=== PATIENT | female | born 1970 | race Caucasian/White ===

== ENCOUNTER → 2019-07-22 | Outpatient (CLI) | payer SELFPAY ==
[2019-07-22 08:12] VITALS: BP 118/78; PULSE 67; RESP 18; TEMP 98; BMI 23.2
--- NOTE | 2019-07-22 09:37 | P.GSHP ---
History of Present Illness H&P Date: 07/22/19 Chief Complaint: nodule in the right breast The patient is a 49 year old female visiting from [place] with a complaint of a nodule in her right breast which has been present for approximately one year. She had a mammogram performed yesterday which did not show anything of concern in either breast by report. She additionally had a bilateral ultrasound performed on 07/15/2019 which revealed multiple bilateral basilar known pseudocyst. The largest was in the right. A tubular cyst was located in the 11 o'clock position measured 2.8 cm in greatest dimension. There was an irregular mass measuring 2 cm seen in the left breast at 9:00 5 cm from the nipple. There was a horizontal mass measuring 8 mm seen in the left breast at 10:00. In the right breast there is no evidence of any solid mass or other abnormality. The impression was an irregular mass in the left breast at 9:00 considered suspicious and ultrasound-guided biopsy was recommended. The oval mass in the left breast at 10:00 was felt to be probably benign and follow-up in 6 months was recommended. The patient [place] [id number]. This was reviewed with Dr. Khan. She did not see any lesions suspicious for malignancy on the mammogram. The patient did not give any history of any trauma or infection in her breast. Family history: 1. Mother: Thyroid cancer 2. Father: Bladder cancer 3. Paternal uncle: Sarcoma 4. Maternal uncle: Biliary adenocarcinoma 5. 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 Social history: Smoke: Negative Alcohol: Negative Drugs: Negative - Constitutional Comment: Patient has sweats or before her periods - EENT Eyes: denies blurred vision, denies pain Ears: deny: decreased hearing, tinnitus Ears, nose, mouth and throat: Denies headache, Denies sore throat - Breasts Breasts: bilateral: as per HPI - Cardiovascular Cardiovascular: Denies chest pain, Denies shortness of breath - Respiratory Respiratory: Denies cough, Denies 7 - Gastrointestinal Gastrointestinal: Denies abdominal pain, Denies diarrhea, Denies nausea, Denies vomiting - Genitourinary (Female) Genitourinary: Denies dysuria, Denies hematuria - Menstruation Comment: adrienne-menopausal - Musculoskeletal Comment: right knee pain - Integumentary Integumentary: Denies pruritus, Denies rash - Neurological Comment: headaches Neurological: Denies numbness, Denies weakness - Psychiatric Psychiatric: Denies anxiety, Denies depression - Endocrine Comment: hyperthyroid - Hematologic/Lymphatic Comment: none - Allergic/Immunologic Allergic/Immunologic: Reports seasonal allergies Past Medical History History of Any Multi-Drug Resistant Organisms: None Reported Smoking Status: Never smoker Medications and Allergies Home Medications Medication Instructions Recorded Confirmed Type B Complex & C No.20/Folic Acid 1 mg PO DAILY 07/22/19 07/22/19 History [Nephrocaps Softgel] Ibuprofen [Motrin] 600 mg PO DAILY PRN 07/22/19 07/22/19 History Methimazole 2.5 mg PO DAILY 07/22/19 07/22/19 History Multivitamin [Multivitamins Adult 1 each PO DAILY 07/22/19 07/22/19 History Gummies] Allergies Allergy/AdvReac Type Severity Reaction Status Date / Time sulfamethoxazole AdvReac Vomiting Unverified 07/22/19 08:12 [From Bactrim] trimethoprim [From Bactrim] AdvReac Vomiting Unverified 07/22/19 08:12 Surgical - Exam Vital Signs Temp Pulse Resp BP Pulse Ox 98.0 F 67 18 118/78 100 07/22/19 08:05 07/22/19 08:05 07/22/19 08:05 07/22/19 08:05 07/22/19 08:05 BMI 23.2 - General well developed, well nourished, no distress - Eyes normal ocular movement - ENT no hearing loss, no congestion - Neck no masses, trachea midline - Respiratory normal expansion, normal respiratory effort, clear to auscultation - Cardiovascular Rhythm: regular Heart Sounds: normal: S1, S2 - Abdomen Abdomen: soft, non tender, no guarding, no rigid, no rebound - Integumentary normal turgor - Neurologic no disoriented, no combative - Musculoskeletal normal gait, normal posture - Psychiatric oriented to time, oriented to person, oriented to place, speech is normal, memory intact Breast examination: Right breast: Multi-positional exam reveals a nodule in the periareolar region at approximately 12:00 this is approximately 1 cm in size it is smooth Fibrocystic changes Right axilla: No adenopathy of concern Left breast: Multi-positional exam fibrocystic changes no discrete dominant masses or nodules of concern Left axilla: No adenopathy of concern Results Patient's mammograms from yesterday before brought from [facility] with Dr. Khan, no discrete lesions were identified in either the right or left breast warranting biopsy on the mammograms Patient's ultrasound from 07-15-19 revealed an area in the left breast at 9:00 for which biopsy was recommended, however on the radiographs sent to us know ultrasound image from 9:00 was available we are therefore recommending repeat bilateral breast ultrasounds Assessment and Plan Assessment: Impression: 1. Palpable mass right breast 2. Radiographic abnormality left breast with questionable change on the right breast mammogram for which ultrasound with attention on 11:[address] Lyon 3. Hypothyroidism 4. Family history of breast cancer 5. Family history of cancer 6. Perimenopausal I have given the patient the option of an attempted aspiration of possible cysts in the palpable lesion in the right breast she wishes to proceed with this Plan: 1. Attempted cyst aspiration right breast 2. Bilateral breast ultrasound with attention to 11:00 right breast and 9:00 left breast 3. If unable to aspirate cyst at the 12 o'clock position of the palpable lesion in the right breast recommend excision in the OR. Cc: Dr. Pal
--- NOTE | 2019-07-22 09:40 | P.PCN ---
Date of Procedure: 07/22/19 Preoperative Diagnosis: Mass right breast at 12:00 Postoperative Diagnosis: same Procedure(s) Performed: Fine-needle aspiration Surgeon: Marj Warner Condition: stable Disposition: same day Indications for Procedure: Palpable mass right breast near 12:00 periaerolar area Description of Procedure: The area of concern in the right breast was prepped using alcohol. A 22-gauge needle on a 10 mL syringe was inserted into the area of concern. The area appeared to be firm in nature and no fluid was obtained with suction on the syringe. An attempt at passing the needle several times to the area was made to obtain cells for cytology. The specimen did not have many cells. The patient tolerated the procedure in stable condition.
== END | disposition home or self-care (01) ==
LOC: WWCWWP 07:39
PROVIDERS: ATTEND Surgery
DX: Z53.9 Procedure and treatment not carried out, unspecified reason (principal)

== ENCOUNTER → 2019-07-22 | Day surgery (SDC) | payer SELFPAY ==
[2019-07-22 14:05] VITALS: RESP 16; BMI 23.0
--- NOTE | 2019-07-22 16:29 | USB ---
EXAMINATION TYPE: US biopsy breast VAD LT, US biopsy breast add'l VAD RT, US biopsy breast VAD RT, US biopsy breast add'l VAD LT, MG diagnostic mammo BI wo CAD DATE OF EXAM: 07/22/2019 CLINICAL HISTORY: R92.8 ABN MAMMO. TECHNIQUE: Ultrasound guided core biopsy of the bilateral breasts. COMPARISON: Bilateral complete breast ultrasound dated 07/22/2019 FINDINGS: The procedure of ultrasound guided core biopsy was explained to the patient. Benefits, alternatives, and risks were discussed. An informed consent was then obtained. Preprocedural timeout was performed. Site A: 9:00 left breast. The patient was placed in supine positioning for imaging and for the procedure. The overlying skin was prepped and draped in usual sterile fashion. 7 cc of 1% lidocaine without epinephrine was used as anesthetic into the skin and subcutaneous tissue up to the suspicious 0.8 x 0.6 x 0.7 cm solid mass at the 9:00 position, 7 cm in the nipple. Under ultrasound guidance, a 12-gauge vacuum assisted biopsy gun device was used to obtain 6 core samples. Following this, a coil-shaped biopsy marker was left in mass. Site B: 3:00 left breast. The patient was placed in supine positioning for imaging and for the procedure. The overlying skin was prepped and draped in usual sterile fashion. 7 cc of 1% lidocaine without epinephrine was used as anesthetic into the skin and subcutaneous tissue up to the 0.5 cm mass at the 3:00 position with irregular margins, possibly cystic. Under ultrasound guidance, a 12-gauge vacuum assisted biopsy gun device was used to obtain 5 core samples. After sampling this lesion there was collapse with ill-defined remaining fluid indicative of cystic nature of this mass. Following this, a wing shaped biopsy marker was left at the site of biopsy. Site C: Retroareolar palpable right mass, possible papilloma. The patient was placed in supine positioning for imaging and for the procedure. The overlying skin was prepped and draped in usual sterile fashion. 5 cc of 1% lidocaine without epinephrine was used as anesthetic into the skin and subcutaneous tissue up to the suspicious palpable 0.7 cm right breast retroareolar mass, mobile on palpation. Under ultrasound guidance, a 12-gauge vacuum assisted biopsy gun device was used to obtain 6 core samples. Following this, a coil-shaped biopsy marker was left in mass. Site D: 8:00 right breast. The patient was placed in supine positioning for imaging and for the procedure. The overlying skin was prepped and draped in usual sterile fashion. 5 cc of 1% lidocaine without epinephrine was used as anesthetic into the skin and subcutaneous tissue up to the 6 mm mass at the 8:00 position in the right breast. Under ultrasound guidance, a 12-gauge vacuum assisted biopsy gun device was used to obtain 5 core samples. Following this, a wing shaped biopsy marker was left in mass. The patient tolerated the procedure well without any immediate complication. The patient was kept in the radiology department for short stay after the procedure and then discharged home in stable condition. IMPRESSION: Successful, uncomplicated ultrasound guided for slight bilateral core biopsy, full pathology results to follow. Pathology Results: Benign A. RIGHT BREAST 11:00/RETROAREOLAR POSITION, NEEDLE CORE BIOPSY: Fibrocystic spectrum changes. B. RIGHT BREAST LESION AT 8:00, NEEDLE CORE BIOPSIES: Fibrocystic spectrum lesions including mild sclerosing adenosis. C. LEFT BREAST AT 9:00 POSITION, BIOPSY: Fibrocystic spectrum disorder including focal sclerosing adenosis. D. LEFT BREAST LESION AT 3:00 POSITION, BIOPSY: Fibrocystic spectrum disorder including sclerosing adenosis and an area suggestive of reaction to duct inflammation or duct ectasia. Intraductal mineralizations are identified. Recommendation Surgical consult of the left breast. Discordant at 9 o'clock on the left breast. Other sites are concordant. Excision at 9 o'clock left breast recommended. MTDD
[2019-07-22 16:43] VITALS: BP 112/77; PULSE 80; TEMP 98
== END ==
LOC: RADUSWWP 13:50
PROVIDERS: ATTEND Surgery
DX: N63.20 Unspecified lump in the left breast, unspecified quadrant (principal); N63.10 Unspecified lump in the right breast, unspecified quadrant; Z88.2 Allergy status to sulfonamides; N60.12 Diffuse cystic mastopathy of left breast; N60.11 Diffuse cystic mastopathy of right breast; N60.22 Fibroadenosis of left breast; N60.21 Fibroadenosis of right breast
CPT/HCPCS: 77066; 19083 ×2; 19084 ×2; A4648; J2001

== ENCOUNTER → 2019-07-22 | Outpatient (CLI) | payer SELFPAY ==
--- NOTE | 2019-07-22 11:14 | P.PN ---
Progress Note - Text Progress Note Date: 07/22/19 The patient had bilateral breast ultrasounds performed today. On the ultrasound the patient was noted in the left breast to have suspicious lesion at 9:00 which was 8 mm, one at 3:00 which was 6 mm, and one in the right breast at 8:00 which was 6 mm. Additionally she was noted to have a periareolar approximately 12:00 palpable lesion in the right breast. The 2 lesions in the left breast were felt to be suspicious enough that if they were not malignant on core biopsy that it would be recommended that she have needle local and excision in the operating room. I have talked to the patient and her sister Dr. Pal and these are going to be sampled via ultrasound core biopsy. I will be present at the time of the biopsy to assure that the palpable lesion in the right breast is sampled as well. Further recommendation to follow the biopsies.
--- NOTE | 2019-07-22 13:22 | USB ---
Reason for exam: clinical finding. Physical Findings: Breast exam performed by Dr. Warner. US Breast BILAT Right complete breast ultrasound includes all four quadrants, the retroareolar region and axilla. Finding demonstrates a 0.7 x 0.6 x 0.4cm cystic lesion at 5 o'clock, a 0.7 x 0.2 x 0.7cm cystic lesion at 7 o'clock, a 0.5 x 0.6 x 0.5cm mixed lesion at 8 o'clock complex, biopsy should be considered, a 0.5 x 0.4 x 0.3cm cystic lesion at 10 o'clock and a 1.5 x 0.5 x 1.1cm cystic lesion at 11 o'clock. Left complete breast ultrasound includes all four quadrants, the retroareolar region and axilla. Finding demonstrates a 0.7 x 0.3 x 0.96cm mixed lesion at 12 o'clock, a 0.5 x 0.5 x 0.5cm mixed lesion at 3 o'clock irregular margins, biopsy recommended, a 0.6 x 0.3 x 0.5cm mixed lesion at 8 o'clock, a 0.7 x 0.5 x 0.9cm mixed lesion at 11 o'clock and a 0.8 x 0.6 x 0.7cm solid lesion at 9 o'clock 7cm from nipple, suspicious, solid mass, biopsy recommended. These results were verbally communicated with the patient and result sheet given to the patient on 07/22/19. ASSESSMENT: Suspicious, BI-RAD 4 RECOMMENDATION: Ultrasound core biopsy of both breasts. (8:00 on right, 3:00 on left, 9:00 on left) Called with mammographic findings and has scheduled an appointment for the patient for 07/22/19 at 11:[address] Warner. Biopsy scheduled for 07/22/19 at 2:00. PRELIMINARY REPORT CALLED AND FAXED TO DR. WARNER ON 07/22/19.
== END | disposition home or self-care (01) ==
LOC: RADUSWWP 09:30
PROVIDERS: ATTEND Surgery
DX: N60.09 Solitary cyst of unspecified breast (principal)

== ENCOUNTER → 2019-07-30 | Outpatient (CLI) | payer SELFPAY ==
[2019-07-30 13:26] VITALS: BP 118/65; PULSE 78; RESP 16; TEMP 98.8; BMI 23.2
--- NOTE | 2019-07-30 14:17 | P.PN ---
Subjective Progress Note Date: 07/30/19 The patient is a 49 year old female visiting from [place] with a complaint of a nodule in her right breast which has been present for approximately one year. She had a mammogram performed yesterday which did not show anything of concern in either breast by report. She additionally had a bilateral ultrasound performed on 07/15/2019 which revealed multiple bilateral basilar known pseudocyst. The largest was in the right. A tubular cyst was located in the 11 o'clock position measured 2.8 cm in greatest dimension. There was an irregular mass measuring 2 cm seen in the left breast at 9:00 5 cm from the nipple. There was a horizontal mass measuring 8 mm seen in the left breast at 10:00. In the right breast there is no evidence of any solid mass or other abnormality. The impression was an irregular mass in the left breast at 9:00 considered suspicious and ultrasound-guided biopsy was recommended. The oval mass in the left breast at 10:00 was felt to be probably benign and follow-up in 6 months was recommended. The [place] [id number]. This was reviewed with Dr. Shabazz She did not see any lesions suspicious for malignancy on the mammogram. The patient did not give any history of any trauma or infection in her breast. She had ultrasound core biopsy of three spots in the left breast and one in the right breast. All were benign, but the one in the left at 9 was felt to be discordant and open biopsy was recommended. Family history: 1. Mother: Thyroid cancer 2. Father: Bladder cancer 3. Paternal uncle: Sarcoma 4. Maternal uncle: Biliary adenocarcinoma 5. 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 Social history: Smoke: Negative Alcohol: Negative Drugs: Negative - Constitutional Comment: Patient has sweats or before her periods - EENT Eyes: denies blurred vision, denies pain Ears: deny: decreased hearing, tinnitus Ears, nose, mouth and throat: Denies headache, Denies sore throat - Breasts Breasts: bilateral: as per HPI - Cardiovascular Cardiovascular: Denies chest pain, Denies shortness of breath - Respiratory Respiratory: Denies cough, Denies 7 - Gastrointestinal Gastrointestinal: Denies abdominal pain, Denies diarrhea, Denies nausea, Denies vomiting - Genitourinary (Female) Genitourinary: Denies dysuria, Denies hematuria - Menstruation Comment: adrienne-menopausal - Musculoskeletal Comment: right knee pain - Integumentary Integumentary: Denies pruritus, Denies rash - Neurological Comment: headaches Neurological: Denies numbness, Denies weakness - Psychiatric Psychiatric: Denies anxiety, Denies depression - Endocrine Comment: hyperthyroid - Hematologic/Lymphatic Comment: none - Allergic/Immunologic Allergic/Immunologic: Reports seasonal allergies Past Medical History History of Any Multi-Drug Resistant Organisms: None Reported Smoking Status: Never smoker Objective - Vital Signs Vital signs: Vital Signs Temp 98.8 F 07/30/19 13:24 Pulse 78 07/30/19 13:24 Resp 16 07/30/19 13:24 BP 118/65 07/30/19 13:24 Pulse Ox 98 07/30/19 13:24 - Constitutional General appearance: Present: average body habitus - EENT Eyes: Present: EOMI ENT: Present: hearing grossly normal - Neck Neck: Present: normal ROM - Respiratory Respiratory: bilateral: CTA - Cardiovascular Rhythm: regular Heart sounds: normal: S1, S2 - Gastrointestinal General gastrointestinal: Present: soft - Integumentary Integumentary Comment(s): Achymosis right and left breast at biopsy sites, small hematoma right breast at biopsy site Integumentary: Present: normal turgor - Musculoskeletal Musculoskeletal: Present: gait normal - Psychiatric Psychiatric: Present: A&O x's 3, appropriate affect, intact judgment & insight Assessment and Plan Assessment: Impression: 1. Radiographic abnormality right and left breast 2. Core biopsy right and left breast showing fibrocystic changes lesion and 9:00 left breast discordant, palpable lesion right breast discordant 3. Family history of breast cancer 4. Hypothyroid 5. Family history of cancer 6. Perimenopausal Plan: 1. Needle local excisional biopsy lesion of concern 9:00 left breast 2. Excision palpable mass right breast 3. Medical management of medical conditions Cc: Dr. Pal Risk and benefits of the procedure discussed with the patient and her sister they understand and wish to proceed
== END ==
LOC: WWCWWP 12:55
PROVIDERS: ATTEND Surgery
DX: Z53.9 Procedure and treatment not carried out, unspecified reason (principal)